=== PATIENT | male | born 1970 | race Hispanic/Latino ===

== ENCOUNTER → 2024-10-27 | Outpatient (CLI) | payer OTHER ==
--- NOTE | 2024-10-27 10:50 | HMCIMG ---
CT HEART SAVER PROMOTIONAL HISTORY: Cardiac calcification scoring. FINDINGS: The cardiac calcification scoring is 86.9. LAD = 21.8, CX = 36.3, and RCA = 28.8. Limited examination of the heart was performed. The study is done for additional or incidental findings. IMPRESSION: A few miniscule calcific granulomas within the medial right lower lobe are of no clinical significance. Diffuse low attenuation of the liver parenchyma suggests fatty change. No other additional findings.
== END | disposition home or self-care (01) ==
LOC: RAH 07:37
PROVIDERS: ATTEND Nurse Practitioner Family
DX: Z13.6 Encounter for screening for cardiovascular disorders (principal)
CPT/HCPCS: 75571